=== PATIENT | male | born 1980 | race Hispanic/Latino ===

== ENCOUNTER 2017-10-24 22:06 | Emergency (ER) | payer SELFPAY ==
[~2017-10-24] VITALS: Ht 177.8 cm; Wt 86.6 kg
[2017-10-24] MEDS ORDERED: SEPTRA4001 PO (23:19)
[2017-10-24 23:50] VITALS: BP 144/104
== END 2017-10-24 23:50 | disposition home or self-care (01) | DRG 605 ==
LOC: ED 22:06
DX: S61.432A Puncture wound without foreign body of left hand, initial encounter (principal); R22.32 Localized swelling, mass and lump, left upper limb; W45.8XXA Other foreign body or object entering through skin, initial encounter; W22.8XXA Striking against or struck by other objects, initial encounter; Y93.89 Activity, other specified; Y92.89 Other specified places as the place of occurrence of the external cause